=== PATIENT | male | born 1995 | race Caucasian/White ===

== ENCOUNTER 2020-09-25 09:27 | Outpatient (CLI) | payer BC, SELFPAY ==
--- NOTE | 2020-09-25 09:40 | FL_ITS ---
WS: [id number] Exam: FL upperGI air smallbowel ser* Date/Time of Exam: 09/25/2020 9:40 AM Reason For Exam: GASTRITIS, NAUSEA AND VOMITING Fluoroscopy time: 4 minutes Preliminary abdominal survey was unremarkable. Swallowing function was normal with normal esophageal motility. No reflux or hiatal hernia seen. The stomach is freely distensible without evidence of mass or ulceration. There was some pylorospasm and delayed gastric emptying noted. The duodenal bulb is s mooth in contour without evidence of ulcer. The duodenal C-loop was not widened or displaced. Barium spills freely into the small bowel. No sign of bowel small bowel obstruction. The mucosal pattern of the duodenum, jejunum and ileum appears normal. No sign of the small bowel loop herniation or displac ement. Barium is noted in the cecum at 1 hour indicating essentially normal small bowel transit time. FL/FL upperGI air smallbowel ser* IMPRESSION: 1. Pylorospasm and delayed gastric emptying. No sign of gastric or duodenal ulc er. 2. Normal small bowel follow-through.
== END 2020-09-25 09:28 | disposition home or self-care (01) ==
LOC: RADWPI 09:31
PROVIDERS: PCP Nurse Practitioner Family; Visit Provider Nurse Practitioner Family
DX: K29.70 Gastritis, unspecified, without bleeding (principal); R11.2 Nausea with vomiting, unspecified
CPT/HCPCS: 74246; 74248

== ENCOUNTER 2020-11-18 14:28 | Emergency (ER) | payer BC, SELFPAY ==
[2020-11-18 15:05] VITALS: BP 152/91; PULSE 95; RESP 14; TEMP 36.6; O2SAT 96; BMI 43.0
--- NOTE | 2020-11-18 15:32 | CT_ITS ---
WS: [id number] CT HEAD TECHNIQUE: Noncontrast CT of the head obtained from the skullbase to the vertex. CLINICAL INFORMATION: facial droop COMPARISON: None. DLP: 867.[address] scans at [facility] use at least one of these dose optimization techniques: automat ed exposure control; mA and/or kV adjustment per patient size (includes targeted exams where dose is matched to clinical indication); or iterative reconstruction. FINDINGS: No evidence of intracranial hemorrhage or mass effect. Ventricular system and basal cisterns are muñoz nt. No extra-axial fluid collections. No evidence of mass or mass effect. Normal mcgarry-white differen tiation. Paranasal sinuses and mastoid air cells are well aerated. .Normal visualized soft tissues. CT/CT head wo con* [id number] IMPRESSION: 1. No evidence of intracranial hemorrhage or mass effect. 2. Normal mcgarry-white differentiation. 3. No acute intracranial findings. Attempted notification OK Álvarez at 11/18/2020 5:28 PM.
--- NOTE | 2020-11-18 17:21 | W.ED.NEUROSD ---
HPI - Neuro Symptoms/Deficit General: Chief Complaint: Neuro Symptoms/Deficit Stated Complaint: NUMBNESS ON LEFT SIDE OF FACE/EYE Time Seen by Provider: 11/18/20 16:57 History of Present Illness: HPI Narrative: 25-year-old male presents emergency room with complaint of weakness on the left side of his face he is difficulty swallowing difficulty closing his eye watering of his eye drooling when he tries to drink. He has no other focal neurologic deficits he did notice a taste difference at the tip of his tongue has not had any significant visual changes. Hearing is been fine. This all began yesterday. Onset (ago): day(s) Location: left face History of same: No Severity: moderate Quality: numb and tingling Relieving factors: none Exacerbating factors: none Associated symptoms: Deny chest pain, cough, diaphoresis, fevers/chills, headache(s), anorexia, malaise, nausea, seizures, short of breath, syncope, tingling, vertigo, vomiting or weakness Treatments Prior to Arrival: none Review of Systems Const: Denies: malaise or diaphoresis ENMT: Denies: throat pain, ear or mastoid pain, nasal discharge or nasal congestion Card: Denies: chest pain or syncope Resp: Denies: dyspnea, productive cough or non-productive cough GI: Denies: nausea or vomiting : Denies: flank pain, dysuria, urinary frequency or urinary urgency Skin/Breast: Denies: rash or pruritus Neuro: Denies: headache(s) or vertigo Physical Exam Const: COMMON NORMALS: no acute distress GENERAL APPEARANCE: cooperative and comfortable ORIENTATION/CONSCIOUSNESS: Yes awake HENMT: COMMON NORMALS: normocephalic, atraumatic and hearing grossly normal bilaterally HEAD & SCALP: normocephalic and atraumatic Eye: COMMON NORMALS: Equal, round and reactive pupils present, EOMs intact bilaterally, conjunctivae normal and no scleral icterus CONJUNCTIVA: Yes conjunctivae normal PUPIL: Yes Equal, round and reactive pupils present Neck/C-Spine: COMMON NORMALS: full ROM, no lymphadenopathy, supple and no JVD Lymph: LYMPHATIC: no lymphadenopathy noted and no lymphedema noted Resp: COMMON NORMALS: normal respiratory effort, No retractions, No use of accessory muscles and clear to auscultation bilaterally AUSCULTATION: clear to auscultation bilaterally Cardio: COMMON NORMALS: no JVD, regular rate, regular rhythm and No murmurs present (Cardio) RATE: regular rate RHYTHM: regular rhythm GI: COMMON NORMALS: Soft to palpation and No hepatosplenomegaly present AUSCULTATION: Yes normoactive bowel sounds PALPATION: Yes Soft to palpation, No Tenderness to palpation present (GI), No Guarding due to palpation present (GI) and Yes No hepatosplenomegaly present Extremity: COMMON NORMALS: normal to inspection, capillary refill normal, no clubbing, cyanosis or edema, no calf tenderness and no pedal edema Neuro: OTHER: Patient has left-sided facial weakness and droop with tearing of the eye difficulty closing the eyelid loss of sensation no sparing of the forehead. Skin: COMMON NORMALS: no rashes or lesions noted GENERAL SKIN EXAM: no rashes or lesions noted Course Vital Signs: Vital signs: Vital Signs Temperature 97.9 F 11/18/20 15:05 Pulse Rate 97 11/18/20 17:37 Respiratory Rate 15 11/18/20 17:37 Blood Pressure 147/107 11/18/20 17:37 Pulse Oximetry 99 11/18/20 17:37 MDM - Neuro Symptoms/Deficit MDM Narrative: Medical decision making narrative: CT of the head negative. Discussed findings with the patient patient has a Thomas's palsy will discharge home prednisone follow-up with primary care discussed usual course of these facial nerve palsies. Discharge Plan Discharge Patient Disposition: Home Clinical Impression: Thomas's palsy Condition: Stable Prescriptions: New prednisone 20 mg tablet 60 mg PO DAILY 5 Days Qty: 30 RF: 0 No Action sucralfate 100 mg/mL suspension 10 ml PO TID RF: 0 Discharge Orders: Discharge ED (Routine); Ordered 11/18/20 Ordered By: Robin Almanza Referrals: Jeevan Nash NP [Primary Care Provider] - Discharge Diet: Usual diet Discharge Activity: Resume usual activity Patient Instructions: Opioid Safety Coding Level of Care Code ED Inspector Quality Assurance for Fariba Cifuentes
[2020-11-18 17:25] VITALS: BP 141/100; PULSE 92; RESP 23; O2SAT 98
[2020-11-18 17:37] VITALS: BP 147/107; PULSE 97; RESP 15; O2SAT 99
== END 2020-11-18 17:40 | disposition home or self-care (01) ==
PROVIDERS: Emergency Provider Family Medicine; PCP Nurse Practitioner Family
DX: G51.0 Bell's palsy (principal)
CPT/HCPCS: 70450; 99282

== ENCOUNTER → 2021-07-01 09:13 | Outpatient (BNVA) | payer BC, SELFPAY | PROVIDERS: PCP Nurse Practitioner Family; Visit Provider Family Medicine | DX: G51.0 Bell's palsy (principal); E66.9 Obesity, unspecified; Z76.89 Persons encountering health services in other specified circumstances | CPT/HCPCS: 80053; 83036; 84443; 85025 ==